=== PATIENT | female | born 1965 | race Caucasian/White ===

== ENCOUNTER 2019-01-29 09:57 | Day surgery (SDC) | payer OTHER ==
[~2019-01-29] VITALS: Ht 160 cm; Wt 71.8 kg
[~2019-01-29 09:57] MED LIST: FERR27TA; PREN1TAB82
[2019-01-29 11:10] VITALS: Ht 160 cm; Wt 71.8 kg
[2019-01-29] MEDS ORDERED: OMEP20CA16 PO (11:17)
[2019-01-29 11:36] VITALS: BP 132/79; PULSE 89; RESP 20
[2019-01-29] MEDS ORDERED: MIDAZOLAM 1 MG/ML 2 ML INJ ONE ×2 (12:15)
[2019-01-29] MEDS ORDERED: FENTAnyl 50 MCG/ML VIAL ONE (12:15)
[2019-01-29 12:30] VITALS: BP 113/65; RESP 16
== END 2019-01-29 12:54 | disposition home or self-care (01) ==
LOC: GIL 09:57
PROVIDERS: ATTEND Internal Medicine Gastroenterology
DX: Z12.11 Encounter for screening for malignant neoplasm of colon (principal); K64.8 Other hemorrhoids
CPT/HCPCS: 45378; 84703; J2250; J3010